=== PATIENT | female | born 1970 | race Asian ===

== ENCOUNTER 2017-02-17 17:30 | Observation (INO) ==
[2017-02-17] MEDS ORDERED: Sodium Chloride 0.9% 1,000 ML PRIMARY IV ONE (18:22)
[2017-02-17] MEDS ORDERED: NITROGLYCERIN 0.4 MG SL TAB (BOTTLE OF 3) SL ONE (18:22)
[2017-02-17] MEDS ORDERED: MORPHINE SULFATE 4 MG/1 ML IVP ONE (18:22)
[2017-02-17] MEDS ORDERED: ONDANSETRON 4 MG/2 ML VIAL IVP ONE (18:22)
--- NOTE | 2017-02-17 18:24 | EKG ---
[address] [address] Measurements Intervals D Lo Rate: 63 P: 64 UT: 174 QRS: 62 QRSD: 113 T: 62 QT: 383 QTc: 391 Interpretive Statements SINUS RHYTHM MODERATE INTRAVENTRICULAR CONDUCTION DELAY [110+ ms QRS DURATION] INTERPRETATION BASED ON A DEFAULT AGE OF 40 YEARS Compared to ECG 01/22/2015 16:53:17 Intraventricular conduction delay now present Incomplete right bundle-branch block no longer present Electronically Signed On 02-18-17 08:45:56 MST by Castro Rodriguez MD [id number]
--- NOTE | 2017-02-17 18:27 | PDOC ---
Chest Pain HPI - General Chief Complaint: Chest Pain Stated Complaint: chest pain mid chest x3 days Date Seen by Provider: 02/17/17 Time Seen by Provider: 18:23 Source: Patient Exam Limitations: POSITIVE: No limitations Treatment Prior to Arrival: REPORTS: None Nurse's Notes Reviewed & Considered: Yes - History of Present Illness Initial Comments: We 6-year-old female complaining of chest pain. Patient with chest pain described as tightness with radiation to her back and neck. She has associated shortness of breath, headache, and nausea. She denies any fever chills or sweats, no cough, no sore throat, no hematuria or dysuria, no rashes. Her symptoms have been ongoing today and intermittently yesterday. Body Location Affected: REPORTS: Head, Chest Timing: REPORTS: Intermittent, Getting Worse Duration: >24 hours Severity: Moderate Context: REPORTS: Rest, Activity Quality: REPORTS: Pressure Radiation: REPORTS: Neck (L), Back Associated Symptoms: REPORTS: Nausea, Shortness of Breath Modifying Factors: improves with: None Reported Similar Symptoms Previously: Yes Recently seen/treated/hospitalized: No Any Prior Injuries Related to Current Complaint?: No - Patient Home Medications Home Medications: Home Medications Aspirin 81 mg ORAL QD tab 10/07/10 Calcium Carbonate/Vitamin D3 [Calcium 600 + Vit D 200 Tablet] 2 tab PO QD tab 01/22/15 Fish Oil/Dha/Epa [Fish Oil 1,200 Mg Fish Oil] 2 ea PO QD cap 01/22/15 Multivitamin [Multi-Vitamin Daily] 1 ea PO QD tab 01/22/15 Atorvastatin Calcium [Lipitor] 1 tab PO QHS #90 tab 02/17/16 Albuterol Sulfate [Proair Hfa] 1 - 2 puff INH Q4-6H #1 inhaler 04/20/16 - Patient Allergies Allergies/Adverse Reactions: Allergies 3 Allergy/AdvReac Type Severity Reaction Status Date / Time No Known Allergies Allergy Verified 02/17/17 17:54 Past Medical History - heen HEENT History: Denies History Cardiovascular History: Hyperlipidemia Respiratory History: Denies History Gastrointestinal History: Denies History Genitourinary History: Denies History Endocrine History: Denies History Musculoskeletal History: Denies History Prosthesis or Implant: No Neurological History: Denies History Blood Disorders: Denies History Psychiatric History: Denies History Female Reproductive History: Denies History Obstetrical History: Denies History Cancer History: Denies History In Past Year Been Physically Harmed or Verbally Threatened: No History of MDRO: No Tobacco Use: Never Smoker Alcohol Use: None In the Past 12 Months, Have Used or Abuse Any Substance: None Previous Surgical History: Yes Type / Date of Surgery: TUBAL LIG, HYST, OVARIAN CYSTS X 2, BREAST LUMPECTOMY X2 D/T POST OP INFECTION, APPY Anesthesia Reactions: No Significant Family History: No pertinent family hx ROS - Limitations ROS Limitations: No Limitations Constitution: REPORTS: Denies Symptoms Cardiovascular: REPORTS: Chest Pain Neurological: REPORTS: Headache Gastrointestinal: REPORTS: Nausea Musculoskeletal: REPORTS: Back Pain Genitourinary: REPORTS: Denies Symptoms Eyes: REPORTS: Denies Symptoms ENT: REPORTS: Denies Symptoms Skin: REPORTS: Denies Skin Symptoms Lympathic: REPORTS: Denies Lympathic Symptoms Immunologic: POSITIVE: Denies Symptoms Psychiatric: POSITIVE: Denies Psych Symptoms Chest Pain PE - General Appearance General Appearance: REPORTS: Alert, Cooperative, No Acute Distress, No Evidence of Trauma - HEENT HEENT: POSITIVE: Head Inspection Nml, Eyes Inspection Nml, Ears Inspection Nml, Nose Inspection Nml, Oral/Dental Inspect. Nml, Pharynx Inspect. Nml, PERRL, EOMI - Neck Neck: REPORTS: Normal Inspection - Respiratory Respiratory: REPORTS: No Respiratory Distress, Breath Sounds Normal, Chest Non- Tender - Cardiovascular Cardiovascular: REPORTS: Regular Rate and Rhythm, Heart Sounds Normal, Strong Pulses, No Murmur, No Gallop, No Friction Rub, No JVD, Other (Nondisplaced point of maximal impact) Peripheral Pulses: Radial (L): 4+, Dorsalis-pedis (R): 3+, Dorsalis-pedis (L): 3 + - Abdomen Abdomen: Soft: (All Quadrants), Normal Bowel Sounds: (All Quadrants), Denies Tenderness: (All Quadrants), No Splenomegaly: (All Quadrants), No Hepatomegaly: (All Quadrants), No Guarding: (All Quadrants), No Rebound: (All Quadrants), No Palpable Pulse: (All Quadrants), No Palpabale Mass: (All Quadrants), No Distention: (All Quadrants), No Rigidity: (All Quadrants) - Skin Skin: REPORTS: Intact, Normal For Race, Warm, Dry, No Rash - Extremities Extremity: Non-Tender: (All Extremities), Normal ROM: (All Extremities), Normal Inspection: (All Extremities), Pelvis Stable: (All Extremities) - Neurological / Psychological Neurological: POSITIVE: Affect Apporpriate, Oriented X3, Motor Normal, Sensation Normal Chest Pain Progress - Results Reviewed by me Xrays/CTs/US Reviewed by me: Yes Discussed with Radiologist: Yes Lab Results Reviewed by Me: Yes CBC and BMP: 02/17/17 18:26 02/17/17 18:26 EKG Interpreted/Reviewed By Me:: Yes EKG Interpretation:: POSITIVE: Normal Sinus Rhythm - Patient's Progress Pain Medication Addressed: POSITIVE: Yes Re-Examine Time: 20:09 Status: POSITIVE: Improved MDM / ED Course: Patient was evaluated, an IV started, blood drawn and sent to the lab for studies, chest x-ray and EKG studies were also obtained. Findings: Chest x-rays a normal chest radiograph, EKG as interpreted by me, shows normal sinus rhythm. Troponin and CK-MB are normal. Triglycerides are 560, VLDL and LDL are both elevated. Compensated metabolic panel shows glucose elevated at 156. CBC is within normal limits. Assessment: Chest pain with normal enzymes, equivocal EKG, and positive risk factors. Plan: Admission for rule out [place]. Quality Measure Initiative: CP/AMI: POSITIVE: EKG, ASA Quality Measure Initiative: CAP: POSITIVE: CXR or CT - Consult Consult (If Yes, Name of Consulting MD & Time Called): Yes (Dr. Lawrence:20:10) Consulting MD will see pt:: POSITIVE: [facility] [place] Admit Counseled: POSITIVE: Patient, Family, RE: Lab Results, RE: Radiology Results, RE : DX Patient Care Time - Estimated PCT Patient Care Time (In Minutes): 45 Vital Signs - Recent Vital Signs Vital Signs: Vital Signs (Last 8 hours) Temp Pulse Pulse Pulse Resp BP Pulse Ox 02/17/17 17:36 63 02/17/17 17:30 98.6 F 68 68 16 116/79 96 - VS Reviewed Vital Signs Reviewed: Yes Discharge Clinical Impression: Chest pain Discharge Disposition: Admit to Inpatient Condition: Stable Date Decision to Admit to Inpatient: 02/17/17 Time Decision to Admit to Inpatient: 20:12
[2017-02-17 18:30] LABS: BASOPHILS # (AUTO) 0.06 10*3/UL; EOSINOPHILS # (AUTO) 0.33 10*3/UL; EOSINOPHILS % (AUTO) 5.3 % (0-8); Hematocrit [HCT] 37.9 % (37.0-47.0); Hemoglobin [HGB] 12.9 g/dL (12.0-16.0); LYMPHOCYTES # (AUTO) 3.26 10*3/uL; MEAN CORPUSCULAR HEMOGLOBIN 29.1 PG (27-31); MEAN CORPUSCULAR VOLUME 85.4 FL (81-99); MEAN PLATELET VOLUME 9.2 FL (7.4-12.2); MONOCYTES # (AUTO) 0.34 10*3/UL (0.3-0.8); MONOCYTES % (AUTO) 5.5 % (5-15); NEUTROPHILS # (AUTO) 2.19 10*3/UL; NEUTROPHILS % (AUTO) 35.3 % (50-80); RED BLOOD COUNT 4.44 10^6/uL (4.20-5.40)
[2017-02-17 18:32] LABS: PLATELET MORPHOLOGY COMMENT NORMAL MORPHOLOGY (NORM); RBC MORPHOLOGY COMMENT NORMAL MORPHOLOGY (NORM); WBC MORPHOLOGY COMMENT NORMAL MORPHOLOGY (NORM)
[2017-02-17 18:42] LABS: BLOOD UREA NITROGEN 22 mg/dL (7-22); BUN/CREATININE RATIO 24.44 (6-20); CHOL/HDL RATIO 5.16 RATIO (0-4.0); MAGNESIUM 1.8 mg/dL (1.6-2.4); SERUM ALBUMIN 4.3 g/dL (3.5-4.8); SERUM CHOLESTEROL 191 mg/dL (120-200)
--- NOTE | 2017-02-17 18:49 | DI ---
AP CHEST X-RAY, 02/17/2017 6:22 PM : Clinical History: Chest pain. Previous Exam: 01/22/2015 There is no acute soft tissue or bony abnormality. Heart size is normal. Lungs are clear. Mediastinal structures are normal. There are no pulmonary nodules. Reading: Normal chest x-ray. There has been no significant interval change.
[2017-02-17] MEDS ORDERED: NITROGLYCERIN 0.4 MG SL TAB (BOTTLE OF 3) SL PRN (21:33)
[2017-02-17] MEDS ORDERED: ATORVASTATIN 40 MG TABLET PO SCH (21:33)
[2017-02-17] MEDS ORDERED: ONDANSETRON 4 MG/2 ML VIAL IVP PRN (21:33)
[2017-02-17] MEDS ORDERED: NORMAL SALINE 10 ML SYRINGE FLUSH IVP PRN (21:33)
[2017-02-17] MEDS ORDERED: CALCIUM CARBONATE 500 MG (TUMS) CHEWABLE TABLET PO PRN (21:33)
[2017-02-17] MEDS ORDERED: LIDOCAINE W/ SODIUM BICARB 0.5 ML SYR SUBD PRN (21:33)
[2017-02-17] MEDS ORDERED: ALBUTEROL SULFATE 8.5 GM HFA INHALER INH PRN (21:33)
--- NOTE | 2017-02-17 23:47 | PDOC ---
HPI - History of Present Illness Date and Time of Service: 02/17/2017, 2342 Chief Complaint: Chest pain History of Present Illness: This very pleasant 46-year-old female with known hypercholesterolemia, very strong positive family history for coronary artery disease, who presents with chest pains over the last 3 days. The patient tells me that she thinks it's related to stress. She's been having a lot of problems with her 14-year-old daughter who has been isolating herself and actually cutting herself. The patient states that she feels like she is a good mother, and that she has reasonable rules for her daughter at home, but the stress of this relationship has caused the patient to feel like she is having a heavy heart and tightness in her chest. The pains and been coming on and off over the last 3 days. She occasionally feels nauseous, but has no diaphoresis with these pains. She does not feel short of breath with these pains. She does not smoke and does not have diabetes or hypertension. She does have known hypercholesterolemia and has been intermittently on a statin over the last 10 years, but because of abdominal pain in relation to this. She has also been on an aspirin for 10 years, denied any GI symptoms of blood loss, but does complain of abdominal upset on medications. There was no exertional component to the pain. Nitroglycerin in the emergency room seemed to have helped with the pain to some degree. She is really hopeful that she can get some counseling in place for her daughter. The patient admitted to having a lot of grief from prior family members passed on including her brother from early cardiac disease and a nephew from lymphoma and her father from cardiac disease early in life. Past Medical History Medical History: 1. Hypercholesterolemia. 2. Family history of coronary artery disease Surgical History: 1. History of unilateral oophorectomy (~1991). 2. Status post appendectomy. 3. Status post hysterectomy (~2007). 4. Status post primary low transverse section (~2012) Pertinent Family History: Significant for coronary artery disease in her father and her brother, both of whom passed on from heart disease prior to age 50. Past Social History: Does not smoke or drink. . Has one biologic child and 3 stepchildren although one step son committed suicide. She works in the school. Tobacco Use: Never Smoker In the Past 12 Months, Have Used or Abuse Any of the Following Substance: None Alcohol Use: None Medication / Allergies Home Medications: Home Medications Medication Instructions Recorded Confirmed Type Aspirin 81 mg ORAL QD tab 10/07/10 02/17/17 History Calcium Carbonate/Vitamin D3 2 tab PO QD tab 01/22/15 02/17/17 History [Calcium 600 + Vit D 200 Tablet] Fish Oil/Dha/Epa [Fish Oil 1,200 2 ea PO QD cap 01/22/15 02/17/17 History Mg Fish Oil] Multivitamin [Multi-Vitamin Daily] 1 ea PO QD tab 01/22/15 02/17/17 History Atorvastatin Calcium [Lipitor] 1 tab PO QHS #90 tab 02/17/16 02/17/17 Rx Albuterol Sulfate [Proair Hfa] 1 - 2 puff INH Q4-6H #1 inhaler 04/20/16 Rx Allergies/Adverse Reactions: Allergies 3 Allergy/AdvReac Type Severity Reaction Status Date / Time No Known Allergies Allergy Verified 02/17/17 17:54 Review of Systems - Review of Systems All Systems: Reviewed & No Additional Complaints Except as Stated (I did a 12 point review systems and it was negative other than that discussed in history present illness. In that noted below.) - Gastrointestinal Gastrointestinal / Abdominal: REPORTS: Other (Stomach upset with medications.) Exam - Vitals Vital Signs: Vital Signs Temperature 97 F Temperature Source Temporal Artery Scan Pulse Rate [Pulse Oximeter] 62 Pulse Rate 57 Respiratory Rate 20 Blood Pressure [Left Arm] 124/83 Blood Pressure 123/76 Pulse Ox 98 Oxygen Delivery Method Room Air Height 5 ft 1 in Weight 138 lb 3.2 oz - General General Appearance: No Acute Distress, Cooperative - Head Head Exam: Normal Inspection, Normocephalic, Atraumatic - Eye Eye Exam: POSITIVE: No Scleral Icterus - ENT ENT Exam: POSITIVE: Mucous Membranes Moist - Neck Neck Exam: Normal Inspection, No Tenderness, No Lymphadenopathy, No Thyromegaly - Respiratory Respiratory Exam: POSITIVE: Clear to Auscultation - Bilaterally, Breathing Non Labored, Normal to Percussion and Palpation - Cardiovascular Cardiovascular Exam: POSITIVE: RRR, No Murmur, No Clicks, No Gallops, No Rubs, No JVD - GI/Abdominal GI/Abdominal Exam: POSITIVE: Normal Bowel Sounds, Non Tender, Non Distended, Soft - Rectal Rectal Exam: POSITIVE: Deferred - External Exam: POSITIVE: Deferred Exam: POSITIVE: Deferred - Extremities Extremities Exam: POSITIVE: No Clubbing Present, No Edema Present, No Cyanosis Present - Back Back Exam: POSITIVE: Normal Inspection, No CVA Tenderness - Neurological Neurological Exam: POSITIVE: Alert, Oriented x 3, No Facial Droop, Speech Intact / Clear, Moves All Extremities Equally - Psychiatric Psychiatric Exam: POSITIVE: Normal Affect, Normal Mood Results - Labs CBC and BMP: 02/17/17 18:26 02/17/17 18:26 Additional Lab Results: Laboratory Results 02/17/17 02/17/17 02/17/17 Range/Units 18:26 18:26 18:26 WBC 6.19 (4.8-10.8) 10^3/uL RBC 4.44 (4.20-5.40) 10^6/uL Hgb 12.9 (12.0-16.0) g/dL Hct 37.9 (37.0-47.0) % MCV 85.4 (81-99) FL MCH 29.1 (27-31) PG MCHC 34.0 (33-37) g/dL RDW Std Deviation 36.8 L (39-50) fL RDW Coeff of Kalpesh 12.2 (11.5-14.5) % Plt Count 251 (140-350) 10*3/uL MPV 9.2 (7.4-12.2) FL Immature Gran % (Auto) 0.2 (0-5) % Neut % (Auto) 35.3 L (50-80) % Lymph % (Auto) 52.7 H (10-50) % [place] % (Auto) 5.5 (5-15) % Eos % (Auto) 5.3 (0-8) % Baso % (Auto) 1.0 (0-1) % Immature Gran # (Auto) 0.01 10*3/UL Neut # (Auto) 2.19 10*3/UL Lymph # (Auto) 3.26 10*3/uL [place] # (Auto) 0.34 (0.3-0.8) 10*3/UL Eos # (Auto) 0.33 10*3/UL Baso # (Auto) 0.06 10*3/UL WBC Morphology Comment Normal morphology (NORM) Plt Morphology Comment Normal morphology (NORM) RBC Morph Comment Normal morphology (NORM) D-Dimer 0.24 (0.00-0.59) mg/L Sodium 142 (135-145) meq/L Potassium 3.5 L (3.8-5.2) meq/L Chloride 106 (98-112) meq/L Carbon Dioxide 24 (23-33) meq/L Anion Gap 12 (5-20) BUN 22 (7-22) mg/dL Creatinine 0.9 (0.50-1.20) mg/dL Estimated GFR > 60 (>60 ml/min/1.73m(2)) BUN/Creatinine Ratio 24.44 H (6-20) Glucose 154 H (78-110) mg/dL Calculated Osmolality 299.0 H (267-292) mOsm/kg Calcium 9.1 (8.7-10.7) mg/dL Magnesium 1.8 (1.6-2.4) mg/dL Total Bilirubin 0.4 (0.3-1.2) mg/dL AST 30 (8-39) IU/L ALT 35 (9-52) IU/L Alkaline Phosphatase 92 (38-126) IU/L CK-MB (CK-2) (0.00-5.00) NG/ML Troponin I (< 0.040) ng/mL C-Reactive Protein < 0.5 (0.0-0.9) mg/dL Total Protein 7.4 (6.1-8.0) g/dL Albumin 4.3 (3.5-4.8) g/dL Globulin 3.1 (2.50-4.10) g/dL Albumin/Globulin Ratio 1.30 (1.3-2.0) mg/g Triglycerides 521 H (44-200) mg/dL Cholesterol 191 (120-200) mg/dL LDL Cholesterol, Calc 49.800 mg/dL VLDL Cholesterol 104 H (0-40) mg/dL HDL Cholesterol 37 L (40-150) mg/dL Cholesterol/HDL Ratio 5.16 H (0-4.0) RATIO TSH (0.2700-4.2000) uIU/mL 02/17/17 02/17/17 02/17/17 Range/Units 18:26 18:26 23:03 WBC (4.8-10.8) 10^3/uL RBC (4.20-5.40) 10^6/uL Hgb (12.0-16.0) g/dL Hct (37.0-47.0) % MCV (81-99) FL MCH (27-31) PG MCHC (33-37) g/dL RDW Std Deviation (39-50) fL RDW Coeff of Kalpesh (11.5-14.5) % Plt Count (140-350) 10*3/uL MPV (7.4-12.2) FL Immature Gran % (Auto) (0-5) % Neut % (Auto) (50-80) % Lymph % (Auto) (10-50) % [place] % (Auto) (5-15) % Eos % (Auto) (0-8) % Baso % (Auto) (0-1) % Immature Gran # (Auto) 10*3/UL Neut # (Auto) 10*3/UL Lymph # (Auto) 10*3/uL [place] # (Auto) (0.3-0.8) 10*3/UL Eos # (Auto) 10*3/UL Baso # (Auto) 10*3/UL WBC Morphology Comment (NORM) Plt Morphology Comment (NORM) RBC Morph Comment (NORM) D-Dimer (0.00-0.59) mg/L Sodium (135-145) meq/L Potassium (3.8-5.2) meq/L Chloride (98-112) meq/L Carbon Dioxide (23-33) meq/L Anion Gap (5-20) BUN (7-22) mg/dL Creatinine (0.50-1.20) mg/dL Estimated GFR (>60 ml/min/1.73m(2)) BUN/Creatinine Ratio (6-20) Glucose (78-110) mg/dL Calculated Osmolality (267-292) mOsm/kg Calcium (8.7-10.7) mg/dL Magnesium (1.6-2.4) mg/dL Total Bilirubin (0.3-1.2) mg/dL AST (8-39) IU/L ALT (9-52) IU/L Alkaline Phosphatase (38-126) IU/L CK-MB (CK-2) 1.06 (0.00-5.00) NG/ML Troponin I 0.010 < 0.012 (< 0.040) ng/mL C-Reactive Protein (0.0-0.9) mg/dL Total Protein (6.1-8.0) g/dL Albumin (3.5-4.8) g/dL Globulin (2.50-4.10) g/dL Albumin/Globulin Ratio (1.3-2.0) mg/g Triglycerides (44-200) mg/dL Cholesterol (120-200) mg/dL LDL Cholesterol, Calc mg/dL VLDL Cholesterol (0-40) mg/dL HDL Cholesterol (40-150) mg/dL Cholesterol/HDL Ratio (0-4.0) RATIO TSH 1.52 (0.2700-4.2000) uIU/mL - EKG Data -: EKG Interpreted by Me Rate: Normal EKG Shows Normal: Sinus Rhythm - Imaging Status: Image Reviewed by Me (Chest x-ray, on my view, is negative) Assessment and Plan - Patient Problems (1) Chest pain Current Visit: Yes Status: Acute Code(s): R07.9 - Chest pain, unspecified (2) Hypertriglyceridemia Current Visit: Yes Status: Acute Code(s): E78.1 - Pure hyperglyceridemia (3) Family history of coronary artery disease Current Visit: Yes Status: Acute Code(s): Z82.49 - Family history of ischemic heart disease and other diseases of the circulatory system - Assessment / Plan Additional Assessment/Plan Details: Plan: 1. Do serial enzymes and EKG if necessary 2. Aspirin, but hold off on beta rosy and Lovenox 3. We'll have the patient do a stress test chemical treadmill stress test 4. Tums when necessary 5. Nitroglycerin when necessary for chest pain 6. I think ultimately, it would help if we get this patient into some counseling along with her daughter. I've given her a name of a counselor as well as the phone number and we will touch bases with the counselor tomorrow to arrange something 7. Oxygen if necessary 8. If testing indicates further need for evaluation, discussion with cardiology. If testing is negative for myocardial infarction and no further indication for coronary artery disease, consider outpatient workup for GI source , pulmonary source, or other 9. Really think the patient would benefit from stopping her statin therapy at this time and going on Lopid given hypertriglyceridemia. The ligament may be beneficial to hold off on aspirin therapy to see if this helps stomach pains and this may need to be evaluated further. 10. I discussed the above plan with the patient and she agreed.
[2017-02-18] MEDS ORDERED: POTASSIUM CHLORIDE 20 MEQ TAB PO ONE (00:03)
[2017-02-18 07:14] LABS: HEMOGLOBIN A1C 5.72 % (4.2-6.0)
[2017-02-18] MEDS: ASPIRIN 81 MG (BABY) CHEWABLE TABLET PO SCH (11:19)
[2017-02-18] MEDS: Multivitamin Tab 1 TAB PO SCH (11:19)
[2017-02-18] MEDS: Calcium/Vit D 600mg/400u Tab 1 TAB TABLET PO SCH (11:19)
[2017-02-18] MEDS ORDERED: GEMFIBROZIL 600 MG TABLET PO ONE (11:27)
--- NOTE | 2017-02-18 11:35 | STRESSTEST ---
[facility] [place] Interpretive Statements This is a 46 YO female that presented with chest pain. Ruled out for [place]. has strong family history and hypertriglyceridemia, no DMII, no HTN, does not smoke. EKG at rest is NSR. Exercised in Juan protocol to 11 minutes. Double product of 23,976, METs of 11.5. Some non diagnostic tracings throughtout. In rest, excellent recovery with no ST depressions. Plan: stress images today, rest images tomorrow, review radiology reports. Electronically Signed On 02-21-17 08:38:51 MST by Castro Rodriguez MD [email or web address]
[2017-02-18] MEDS: GEMFIBROZIL 600 MG TABLET PO SCH (17:09)
--- NOTE | 2017-02-18 18:51 | PDOC(PROG) ---
Date and Time of Service: 02/18/2017, 1846 Interval History: No further chest pain. no shortness of breath, no nausea or vomiting. stress test portion of Juan protocol stress chemical stress test done earlier today. Objective : Data - Labs CBC and BMP: 02/17/17 18:26 02/17/17 18:26 Additional Lab Results: Laboratory Results 02/17/17 02/17/17 02/17/17 Range/Units 18:26 18:26 18:26 WBC 6.19 (4.8-10.8) 10^3/uL RBC 4.44 (4.20-5.40) 10^6/uL Hgb 12.9 (12.0-16.0) g/dL Hct 37.9 (37.0-47.0) % MCV 85.4 (81-99) FL MCH 29.1 (27-31) PG MCHC 34.0 (33-37) g/dL RDW Std Deviation 36.8 L (39-50) fL RDW Coeff of Kalpesh 12.2 (11.5-14.5) % Plt Count 251 (140-350) 10*3/uL MPV 9.2 (7.4-12.2) FL Immature Gran % (Auto) 0.2 (0-5) % Neut % (Auto) 35.3 L (50-80) % Lymph % (Auto) 52.7 H (10-50) % Castro % (Auto) 5.5 (5-15) % Eos % (Auto) 5.3 (0-8) % Baso % (Auto) 1.0 (0-1) % Immature Gran # (Auto) 0.01 10*3/UL Neut # (Auto) 2.19 10*3/UL Lymph # (Auto) 3.26 10*3/uL Castro # (Auto) 0.34 (0.3-0.8) 10*3/UL Eos # (Auto) 0.33 10*3/UL Baso # (Auto) 0.06 10*3/UL WBC Morphology Comment Normal morphology (NORM) Plt Morphology Comment Normal morphology (NORM) RBC Morph Comment Normal morphology (NORM) D-Dimer 0.24 (0.00-0.59) mg/L Sodium 142 (135-145) meq/L Potassium 3.5 L (3.8-5.2) meq/L Chloride 106 (98-112) meq/L Carbon Dioxide 24 (23-33) meq/L Anion Gap 12 (5-20) BUN 22 (7-22) mg/dL Creatinine 0.9 (0.50-1.20) mg/dL Estimated GFR > 60 (>60 ml/min/1.73m(2)) BUN/Creatinine Ratio 24.44 H (6-20) Glucose 154 H (78-110) mg/dL Mean Blood Glucose mg/dL Hemoglobin A1c (4.2-6.0) % Calculated Osmolality 299.0 H (267-292) mOsm/kg Calcium 9.1 (8.7-10.7) mg/dL Magnesium 1.8 (1.6-2.4) mg/dL Total Bilirubin 0.4 (0.3-1.2) mg/dL AST 30 (8-39) IU/L ALT 35 (9-52) IU/L Alkaline Phosphatase 92 (38-126) IU/L CK-MB (CK-2) (0.00-5.00) NG/ML Troponin I (< 0.040) ng/mL C-Reactive Protein < 0.5 (0.0-0.9) mg/dL Total Protein 7.4 (6.1-8.0) g/dL Albumin 4.3 (3.5-4.8) g/dL Globulin 3.1 (2.50-4.10) g/dL Albumin/Globulin Ratio 1.30 (1.3-2.0) mg/g Triglycerides 521 H (44-200) mg/dL Cholesterol 191 (120-200) mg/dL LDL Cholesterol, Calc 49.800 mg/dL VLDL Cholesterol 104 H (0-40) mg/dL HDL Cholesterol 37 L (40-150) mg/dL Cholesterol/HDL Ratio 5.16 H (0-4.0) RATIO TSH (0.2700-4.2000) uIU/mL Free T4 (0.93-1.71) ng/dL 02/17/17 02/17/17 02/17/17 Range/Units 18:26 18:26 23:03 WBC (4.8-10.8) 10^3/uL RBC (4.20-5.40) 10^6/uL Hgb (12.0-16.0) g/dL Hct (37.0-47.0) % MCV (81-99) FL MCH (27-31) PG MCHC (33-37) g/dL RDW Std Deviation (39-50) fL RDW Coeff of Kalpesh (11.5-14.5) % Plt Count (140-350) 10*3/uL MPV (7.4-12.2) FL Immature Gran % (Auto) (0-5) % Neut % (Auto) (50-80) % Lymph % (Auto) (10-50) % Castro % (Auto) (5-15) % Eos % (Auto) (0-8) % Baso % (Auto) (0-1) % Immature Gran # (Auto) 10*3/UL Neut # (Auto) 10*3/UL Lymph # (Auto) 10*3/uL Castro # (Auto) (0.3-0.8) 10*3/UL Eos # (Auto) 10*3/UL Baso # (Auto) 10*3/UL WBC Morphology Comment (NORM) Plt Morphology Comment (NORM) RBC Morph Comment (NORM) D-Dimer (0.00-0.59) mg/L Sodium (135-145) meq/L Potassium (3.8-5.2) meq/L Chloride (98-112) meq/L Carbon Dioxide (23-33) meq/L Anion Gap (5-20) BUN (7-22) mg/dL Creatinine (0.50-1.20) mg/dL Estimated GFR (>60 ml/min/1.73m(2)) BUN/Creatinine Ratio (6-20) Glucose (78-110) mg/dL Mean Blood Glucose mg/dL Hemoglobin A1c (4.2-6.0) % Calculated Osmolality (267-292) mOsm/kg Calcium (8.7-10.7) mg/dL Magnesium (1.6-2.4) mg/dL Total Bilirubin (0.3-1.2) mg/dL AST (8-39) IU/L ALT (9-52) IU/L Alkaline Phosphatase (38-126) IU/L CK-MB (CK-2) 1.06 (0.00-5.00) NG/ML Troponin I 0.010 < 0.012 (< 0.040) ng/mL C-Reactive Protein (0.0-0.9) mg/dL Total Protein (6.1-8.0) g/dL Albumin (3.5-4.8) g/dL Globulin (2.50-4.10) g/dL Albumin/Globulin Ratio (1.3-2.0) mg/g Triglycerides (44-200) mg/dL Cholesterol (120-200) mg/dL LDL Cholesterol, Calc mg/dL VLDL Cholesterol (0-40) mg/dL HDL Cholesterol (40-150) mg/dL Cholesterol/HDL Ratio (0-4.0) RATIO TSH 1.52 (0.2700-4.2000) uIU/mL Free T4 (0.93-1.71) ng/dL 02/18/17 02/18/17 02/18/17 Range/Units 05:06 05:06 05:06 WBC (4.8-10.8) 10^3/uL RBC (4.20-5.40) 10^6/uL Hgb (12.0-16.0) g/dL Hct (37.0-47.0) % MCV (81-99) FL MCH (27-31) PG MCHC (33-37) g/dL RDW Std Deviation (39-50) fL RDW Coeff of Kalpesh (11.5-14.5) % Plt Count (140-350) 10*3/uL MPV (7.4-12.2) FL Immature Gran % (Auto) (0-5) % Neut % (Auto) (50-80) % Lymph % (Auto) (10-50) % Castro % (Auto) (5-15) % Eos % (Auto) (0-8) % Baso % (Auto) (0-1) % Immature Gran # (Auto) 10*3/UL Neut # (Auto) 10*3/UL Lymph # (Auto) 10*3/uL Castro # (Auto) (0.3-0.8) 10*3/UL Eos # (Auto) 10*3/UL Baso # (Auto) 10*3/UL WBC Morphology Comment (NORM) Plt Morphology Comment (NORM) RBC Morph Comment (NORM) D-Dimer (0.00-0.59) mg/L Sodium (135-145) meq/L Potassium (3.8-5.2) meq/L Chloride (98-112) meq/L Carbon Dioxide (23-33) meq/L Anion Gap (5-20) BUN (7-22) mg/dL Creatinine (0.50-1.20) mg/dL Estimated GFR (>60 ml/min/1.73m(2)) BUN/Creatinine Ratio (6-20) Glucose (78-110) mg/dL Mean Blood Glucose 104.476 mg/dL Hemoglobin A1c 5.72 (4.2-6.0) % Calculated Osmolality (267-292) mOsm/kg Calcium (8.7-10.7) mg/dL Magnesium (1.6-2.4) mg/dL Total Bilirubin (0.3-1.2) mg/dL AST (8-39) IU/L ALT (9-52) IU/L Alkaline Phosphatase (38-126) IU/L CK-MB (CK-2) (0.00-5.00) NG/ML Troponin I < 0.012 (< 0.040) ng/mL C-Reactive Protein (0.0-0.9) mg/dL Total Protein (6.1-8.0) g/dL Albumin (3.5-4.8) g/dL Globulin (2.50-4.10) g/dL Albumin/Globulin Ratio (1.3-2.0) mg/g Triglycerides (44-200) mg/dL Cholesterol (120-200) mg/dL LDL Cholesterol, Calc mg/dL VLDL Cholesterol (0-40) mg/dL HDL Cholesterol (40-150) mg/dL Cholesterol/HDL Ratio (0-4.0) RATIO TSH 1.77 (0.2700-4.2000) uIU/mL Free T4 1.05 (0.93-1.71) ng/dL Objective : Exam - General General Appearance: No Acute Distress, Cooperative Additional General Exam Details: Vital Signs (24 hrs) Temp Pulse Pulse Pulse Resp BP BP 02/18/17 16:03 98.4 F 59 L 16 91/53 02/18/17 15:35 58 L 02/18/17 12:50 98.7 F 79 16 112/80 02/18/17 12:07 81 02/18/17 07:59 97.5 F 58 L 16 107/72 02/18/17 07:00 54 L 57 L 68 02/18/17 05:00 97.3 F 57 L 16 99/61 02/18/17 03:00 57 L 02/18/17 00:37 97.2 F 67 16 114/65 02/17/17 23:00 59 L 02/17/17 22:36 97 F 62 20 124/83 02/17/17 22:00 57 L 16 123/76 Pulse Ox 02/18/17 16:03 97 02/18/17 15:35 02/18/17 12:50 94 02/18/17 12:07 02/18/17 07:59 96 02/18/17 07:00 02/18/17 05:00 97 02/18/17 03:00 02/18/17 00:37 99 02/17/17 23:00 02/17/17 22:36 98 02/17/17 22:00 99 - Eye Eye Exam: No Scleral Icterus - Respiratory Respiratory Exam: Clear to Auscultation - Bilaterally, Breathing Non Labored - Cardiovascular Cardiovascular Exam: RRR, No Murmur, No Clicks, No Gallops, No Rubs, No JVD - GI/Abdominal GI/Abdominal Exam: Normal Bowel Sounds, Non Tender, Non Distended, Soft - Extremities Extremities Exam: No Clubbing Present, No Edema Present, No Cyanosis Present - Neurological Neurological Exam: Alert, Oriented x 3, No Facial Droop, Speech Intact / Clear, Moves All Extremities Equally - Psychiatric Psychiatric Exam: Normal Affect, Normal Mood Assessment and Plan - Patient Problems (1) Chest pain Current Visit: Yes Status: Acute Code(s): R07.9 - Chest pain, unspecified (2) Hypertriglyceridemia Current Visit: Yes Status: Acute Code(s): E78.1 - Pure hyperglyceridemia (3) Family history of coronary artery disease Current Visit: Yes Status: Acute Code(s): Z82.49 - Family history of ischemic heart disease and other diseases of the circulatory system - Assessment / Plan Additional Assessment/Plan Details: stop statin start lopid complete stress test in AM and await radiology review discussed with case managementwe are trying to arrange some outpatient counseling for the patient and her daughter to help with stressful issues at home. continue aspirin and telemetry monitoring. encouraged by the fact that HBA1c was normal, no diabetes
[2017-02-19] MEDS: GEMFIBROZIL 600 MG TABLET PO SCH (07:42)
[2017-02-19] MEDS: ASPIRIN 81 MG (BABY) CHEWABLE TABLET PO SCH (09:46)
[2017-02-19] MEDS: Multivitamin Tab 1 TAB PO SCH (09:46)
[2017-02-19] MEDS: Calcium/Vit D 600mg/400u Tab 1 TAB TABLET PO SCH (09:46)
[2017-02-19 12:44] VITALS: TEMP 97.2
--- NOTE | 2017-02-19 13:28 | DI ---
Exam: NM OTHER HISTORY: 46-year-old female that presented with chest pain. Rule out for MO. Strong family history and hypertriglyceridemia, no diabetes, no hypertension, does not smoke. TECHNIQUE: 2 day protocol nuclear medicine stress test using Juan protocol was performed. Stress study was performed utilizing 33.5 mCi of sestamibi technetium 99m with physical treadmill stress Juan protocol performed. 3 plane imaging of the heart was performed. 24 hours later stress portion of the study was performed utilizing 35.5 mCi of sestamibi technetium 99m with 3 plane imaging of the heart obtained. Limited CT of the chest at the level of the heart was obtained also with 5 mm transaxial images CTDI 0.08, DLP 115.33.. COMPARISON EXAM: Chest radiograph 02/17/17 FINDINGS: In the inferior lateral left ventricle at the mid one third segment there is a moderate decreased perfusion which is showing partial reversibility. There is concern for a short segment moderate decreased perfusion at the proximal septal wall region which is showing partial reversibility as seen on axial images. No other suspected reversible defect. Ejection fraction is calculated at 67% on the stress images and 58% on the rest images. Wall motion appears to be within normal limits. No evidence for stress dilatation of the left ventricle. CONCLUSION: 1. In the inferior lateral left ventricle at the mid one third segment there is a moderate decreased perfusion appearance which is showing reversibility. There is also concern for a short segment moderate decreased perfusion at the proximal septal wall region which is showing partial reversibility as seen on axial images. 2. Ejection fraction is within normal limits cochlear at 58% on the rest and 67% on the stress images. Wall motion is normal. Critical Value Communications Verify Receipt with Nurse
[2017-02-19] MEDS ORDERED: HEPARIN 5000 UNIT/1 ML IV ONE (13:37)
[2017-02-19] MEDS ORDERED: Heparin Drip 25,000 UNIT/500 ML BAG IV ONE (13:42)
[2017-02-19] MEDS ORDERED: Heparin Drip 25,000 UNIT/500 ML BAG IV SCH (13:45)
[2017-02-19] MEDS ORDERED: Metoprolol TARTRATE Tab 25 MG TAB PO ONE (14:49)
--- NOTE | 2017-02-19 14:57 | DCSUMMARY ---
Hospitalization Summary Admit Date: 02/17/17 Discharge Date: 02/19/17 Primary Diagnosis:: unstable angina Secondary Diagnosis:: Positive stress test. Atypical chest pain. Hypertriglyceridemia. Hospital Course: This very pleasant 46-year-old female that presented with atypical chest pains, and ruled out for myocardial infarction. She was found to have hypertriglyceridemia. We did do a stress test, it was a Juan protocol stress test, with a double product over 23,000, metabolic equivalents of over 11, but a positive nuclear portion of her stress test. She had no abnormal wall motion of her heart, but there is some suggestion of reversible defect. She is placed on Lopid and we stopped her Lipitor therapy during the hospital stay. She continued on aspirin. I spoke with Dr. Grande regarding the stress test results, and it was felt that the patient could do this either on an inpatient basis on outpatient basis, but the patient does want to see him today if possible to discuss further cardiac testing. She'll go by private vehicle to [facility] today. I gave her dose of Lovenox 1 mg/kg subcutaneous 1, 1 dose of metoprolol. She may need to continue that. I cannot rule out that this is a severe reaction to stress at home, but given the findings of the stress results they're difficult to ignore without further input from special shopper. She is complaining of occasional "twinges" of chest pain today. We have arranged follow-up with her primary care physician, Dr. Reyes, next week. Additionally, I found that the patient has had significant family history some heart disease including a brother and her father that prior the age of 50 with heart disease, in addition the patient is under quite an amount of stress with her daughter. She probably will require counseling to help with stressful situations at home. No shortness breath currently and no nausea or vomiting currently. Currently no chest pains although she has stated she's had some twinges occasionally. It is not clear if she is giving us all of the history from stress or fear of her situation. Assessment and Plan: 1. As per discharge assessments noted 2. Disposition: Patient is discharged by private car to [facility]. 3. Condition on discharge, stable and improved. If this is a true positive stress test, there is a risk of cardiac event, but the benefits of private transport would include reduce stress and reduced cost. 4. Diet: regular diet 5. Activities: As per [facility]. 6. Follow-Up: 1. Dr. Reyes, already scheduled. 2. 7. Medications at the Time of Discharge: Home Medications Medication Instructions Recorded Confirmed Type Aspirin 81 mg ORAL QD tab 10/07/10 02/17/17 History Calcium Carbonate/Vitamin D3 2 tab PO QD tab 01/22/15 02/17/17 History [Calcium 600 + Vit D 200 Tablet] Multivitamin [Multi-Vitamin Daily] 1 ea PO QD tab 01/22/15 02/17/17 History Albuterol Sulfate [Proair Hfa] 1 - 2 puff INH Q4-6H #1 inhaler 04/20/16 Rx Gemfibrozil [Lopid] 600 mg PO AC BK DIN #60 tab 02/19/17 Rx Nitroglycerin SL 0.4mg Tab 1 tab SL Q5M PRN bottle 02/19/17 Rx [Nitrostat SL 0.4mg Tab] 8. Time, care, counseling and coordination of care for this discharge is greater than 30 minutes. Exam - Vitals Vital Signs: Vital Signs Temperature 97.2 F Temperature Source Temporal Artery Scan Pulse Rate [Pulse Oximeter] 62 Pulse Rate [Telemetry] 71 Pulse Rate [Apical] 60 Pulse Rate 53 Respiratory Rate 16 Blood Pressure [Left Arm] 105/76 Blood Pressure 123/76 Pulse Ox 98 Oxygen Delivery Method Room Air Height 5 ft 1 in Weight 138 lb 9.6 oz - General General Appearance: No Acute Distress, Cooperative Additional General Exam Details: Tearful frequently on exam. - Eye Eye Exam: POSITIVE: No Scleral Icterus - ENT ENT Exam: POSITIVE: Mucous Membranes Moist - Respiratory Respiratory Exam: POSITIVE: Clear to Auscultation - Bilaterally, Breathing Non Labored - Cardiovascular Cardiovascular Exam: POSITIVE: RRR, No Murmur, No Clicks, No Gallops, No Rubs, No JVD - GI/Abdominal GI/Abdominal Exam: POSITIVE: Normal Bowel Sounds, Non Tender, Non Distended, Soft - Extremities Extremities Exam: POSITIVE: No Clubbing Present, No Edema Present, No Cyanosis Present - Neurological Neurological Exam: POSITIVE: Alert, Oriented x 3, No Facial Droop, Speech Intact / Clear, Moves All Extremities Equally - Psychiatric Psychiatric Exam: POSITIVE: Anxious Data Perinent Studies: Laboratory Results 02/17/17 02/17/1702/17/17 Range/Units 18:26 18:26 18:26 WBC 6.19 (4.8-10.8) 10^3/uL RBC 4.44 (4.20-5.40) 10^6/uL Hgb 12.9 (12.0-16.0) g/dL Hct 37.9 (37.0-47.0) % MCV 85.4 (81-99) FL MCH 29.1 (27-31) PG MCHC 34.0 (33-37) g/dL RDW Std Deviation 36.8 L (39-50) fL RDW Coeff of Kalpesh 12.2 (11.5-14.5) % Plt Count 251 (140-350) 10*3/uL MPV 9.2 (7.4-12.2) FL Immature Gran % (Auto) 0.2 (0-5) % Neut % (Auto) 35.3 L (50-80) % Lymph % (Auto) 52.7 H (10-50) % [place] % (Auto) 5.5 (5-15) % Eos % (Auto) 5.3 (0-8) % Baso % (Auto) 1.0 (0-1) % Immature Gran # (Auto) 0.01 10*3/UL Neut # (Auto) 2.19 10*3/UL Lymph # (Auto) 3.26 10*3/uL [place] # (Auto) 0.34 (0.3-0.8) 10*3/UL Eos # (Auto) 0.33 10*3/UL Baso # (Auto) 0.06 10*3/UL WBC Morphology Comment Normal morphology (NORM) Plt Morphology Comment Normal morphology (NORM) RBC Morph Comment Normal morphology (NORM) PT (9.7-11.4) secs INR (0.00-5.90) N/A APTT (22.6-36.2) SECS D-Dimer 0.24 (0.00-0.59) mg/L Sodium 142 (135-145) meq/L Potassium 3.5 L (3.8-5.2) meq/L Chloride 106 (98-112) meq/L Carbon Dioxide 24 (23-33) meq/L Anion Gap 12 (5-20) BUN 22 (7-22) mg/dL Creatinine 0.9 (0.50-1.20) mg/dL Estimated GFR > 60 (>60 ml/min/1.73m(2)) BUN/Creatinine Ratio 24.44 H (6-20) Glucose 154 H (78-110) mg/dL Mean Blood Glucose mg/dL Hemoglobin A1c (4.2-6.0) % Calculated Osmolality 299.0 H (267-292) mOsm/kg Calcium 9.1 (8.7-10.7) mg/dL Magnesium 1.8 (1.6-2.4) mg/dL Total Bilirubin 0.4 (0.3-1.2) mg/dL AST 30 (8-39) IU/L ALT 35 (9-52) IU/L Alkaline Phosphatase 92 (38-126) IU/L CK-MB (CK-2) (0.00-5.00) NG/ML Troponin I (< 0.040) ng/mL C-Reactive Protein < 0.5 (0.0-0.9) mg/dL Total Protein 7.4 (6.1-8.0) g/dL Albumin 4.3 (3.5-4.8) g/dL Globulin 3.1 (2.50-4.10) g/dL Albumin/Globulin Ratio 1.30 (1.3-2.0) mg/g Triglycerides 521 H (44-200) mg/dL Cholesterol 191 (120-200) mg/dL LDL Cholesterol, Calc 49.800 mg/dL VLDL Cholesterol 104 H (0-40) mg/dL HDL Cholesterol 37 L (40-150) mg/dL Cholesterol/HDL Ratio 5.16 H (0-4.0) RATIO TSH (0.2700-4.2000) uIU/mL Free T4 (0.93-1.71) ng/dL 02/17/17 02/17/17 02/17/17 Range/Units 18:26 18:26 23:03 WBC (4.8-10.8) 10^3/uL RBC (4.20-5.40) 10^6/uL Hgb (12.0-16.0) g/dL Hct (37.0-47.0) % MCV (81-99) FL MCH (27-31) PG MCHC (33-37) g/dL RDW Std Deviation (39-50) fL RDW Coeff of Kalpesh (11.5-14.5) % Plt Count (140-350) 10*3/uL MPV (7.4-12.2) FL Immature Gran % (Auto) (0-5) % Neut % (Auto) (50-80) % Lymph % (Auto) (10-50) % [place] % (Auto) (5-15) % Eos % (Auto) (0-8) % Baso % (Auto) (0-1) % Immature Gran # (Auto) 10*3/UL Neut # (Auto) 10*3/UL Lymph # (Auto) 10*3/uL [place] # (Auto) (0.3-0.8) 10*3/UL Eos # (Auto) 10*3/UL Baso # (Auto) 10*3/UL WBC Morphology Comment (NORM) Plt Morphology Comment (NORM) RBC Morph Comment (NORM) PT (9.7-11.4) secs INR (0.00-5.90) N/A APTT (22.6-36.2) SECS D-Dimer (0.00-0.59) mg/L Sodium (135-145) meq/L Potassium (3.8-5.2) meq/L Chloride (98-112) meq/L Carbon Dioxide (23-33) meq/L Anion Gap (5-20) BUN (7-22) mg/dL Creatinine (0.50-1.20) mg/dL Estimated GFR (>60 ml/min/1.73m(2)) BUN/Creatinine Ratio (6-20) Glucose (78-110) mg/dL Mean Blood Glucose mg/dL Hemoglobin A1c (4.2-6.0) % Calculated Osmolality (267-292) mOsm/kg Calcium (8.7-10.7) mg/dL Magnesium (1.6-2.4) mg/dL Total Bilirubin (0.3-1.2) mg/dL AST (8-39) IU/L ALT (9-52) IU/L Alkaline Phosphatase (38-126) IU/L CK-MB (CK-2) 1.06 (0.00-5.00) NG/ML Troponin I 0.010 < 0.012 (< 0.040) ng/mL C-Reactive Protein (0.0-0.9) mg/dL Total Protein (6.1-8.0) g/dL Albumin (3.5-4.8) g/dL Globulin (2.50-4.10) g/dL Albumin/Globulin Ratio (1.3-2.0) mg/g Triglycerides (44-200) mg/dL Cholesterol (120-200) mg/dL LDL Cholesterol, Calc mg/dL VLDL Cholesterol (0-40) mg/dL HDL Cholesterol (40-150) mg/dL Cholesterol/HDL Ratio (0-4.0) RATIO TSH 1.52 (0.2700-4.2000) uIU/mL Free T4 (0.93-1.71) ng/dL 02/18/17 02/18/17 02/18/17 Range/Units 05:06 05:06 05:06 WBC (4.8-10.8) 10^3/uL RBC (4.20-5.40) 10^6/uL Hgb (12.0-16.0) g/dL Hct (37.0-47.0) % MCV (81-99) FL MCH (27-31) PG MCHC (33-37) g/dL RDW Std Deviation (39-50) fL RDW Coeff of Kalpesh (11.5-14.5) % Plt Count (140-350) 10*3/uL MPV (7.4-12.2) FL Immature Gran % (Auto) (0-5) % Neut % (Auto) (50-80) % Lymph % (Auto) (10-50) % [place] % (Auto) (5-15) % Eos % (Auto) (0-8) % Baso % (Auto) (0-1) % Immature Gran # (Auto) 10*3/UL Neut # (Auto) 10*3/UL Lymph # (Auto) 10*3/uL [place] # (Auto) (0.3-0.8) 10*3/UL Eos # (Auto) 10*3/UL Baso # (Auto) 10*3/UL WBC Morphology Comment (NORM) Plt Morphology Comment (NORM) RBC Morph Comment (NORM) PT (9.7-11.4) secs INR (0.00-5.90) N/A APTT (22.6-36.2) SECS D-Dimer (0.00-0.59) mg/L Sodium (135-145) meq/L Potassium (3.8-5.2) meq/L Chloride (98-112) meq/L Carbon Dioxide (23-33) meq/L Anion Gap (5-20) BUN (7-22) mg/dL Creatinine (0.50-1.20) mg/dL Estimated GFR (>60 ml/min/1.73m(2)) BUN/Creatinine Ratio (6-20) Glucose (78-110) mg/dL Mean Blood Glucose 104.476 mg/dL Hemoglobin A1c 5.72 (4.2-6.0) % Calculated Osmolality (267-292) mOsm/kg Calcium (8.7-10.7) mg/dL Magnesium (1.6-2.4) mg/dL Total Bilirubin (0.3-1.2) mg/dL AST (8-39) IU/L ALT (9-52) IU/L Alkaline Phosphatase (38-126) IU/L CK-MB (CK-2) (0.00-5.00) NG/ML Troponin I < 0.012 (< 0.040) ng/mL C-Reactive Protein (0.0-0.9) mg/dL Total Protein (6.1-8.0) g/dL Albumin (3.5-4.8) g/dL Globulin (2.50-4.10) g/dL Albumin/Globulin Ratio (1.3-2.0) mg/g Triglycerides (44-200) mg/dL Cholesterol (120-200) mg/dL LDL Cholesterol, Calc mg/dL VLDL Cholesterol (0-40) mg/dL HDL Cholesterol (40-150) mg/dL Cholesterol/HDL Ratio (0-4.0) RATIO TSH 1.77 (0.2700-4.2000) uIU/mL Free T4 1.05 (0.93-1.71) ng/dL 02/19/17 Range/Units 13:38 WBC (4.8-10.8) 10^3/uL RBC (4.20-5.40) 10^6/uL Hgb (12.0-16.0) g/dL Hct (37.0-47.0) % MCV (81-99) FL MCH (27-31) PG MCHC (33-37) g/dL RDW Std Deviation (39-50) fL RDW Coeff of Kalpesh (11.5-14.5) % Plt Count (140-350) 10*3/uL MPV (7.4-12.2) FL Immature Gran % (Auto) (0-5) % Neut % (Auto) (50-80) % Lymph % (Auto) (10-50) % [place] % (Auto) (5-15) % Eos % (Auto) (0-8) % Baso % (Auto) (0-1) % Immature Gran # (Auto) 10*3/UL Neut # (Auto) 10*3/UL Lymph # (Auto) 10*3/uL [place] # (Auto) (0.3-0.8) 10*3/UL Eos # (Auto) 10*3/UL Baso # (Auto) 10*3/UL WBC Morphology Comment (NORM) Plt Morphology Comment (NORM) RBC Morph Comment (NORM) PT 10.5 (9.7-11.4) secs INR 0.99 (0.00-5.90) N/A APTT 27.0 (22.6-36.2) SECS D-Dimer (0.00-0.59) mg/L Sodium (135-145) meq/L Potassium (3.8-5.2) meq/L Chloride (98-112) meq/L Carbon Dioxide (23-33) meq/L Anion Gap (5-20) BUN (7-22) mg/dL Creatinine (0.50-1.20) mg/dL Estimated GFR (>60 ml/min/1.73m(2)) BUN/Creatinine Ratio (6-20) Glucose (78-110) mg/dL Mean Blood Glucose mg/dL Hemoglobin A1c (4.2-6.0) % Calculated Osmolality (267-292) mOsm/kg Calcium (8.7-10.7) mg/dL Magnesium (1.6-2.4) mg/dL Total Bilirubin (0.3-1.2) mg/dL AST (8-39) IU/L ALT (9-52) IU/L Alkaline Phosphatase (38-126) IU/L CK-MB (CK-2) (0.00-5.00) NG/ML Troponin I (< 0.040) ng/mL C-Reactive Protein (0.0-0.9) mg/dL Total Protein (6.1-8.0) g/dL Albumin (3.5-4.8) g/dL Globulin (2.50-4.10) g/dL Albumin/Globulin Ratio (1.3-2.0) mg/g Triglycerides (44-200) mg/dL Cholesterol (120-200) mg/dL LDL Cholesterol, Calc mg/dL VLDL Cholesterol (0-40) mg/dL HDL Cholesterol (40-150) mg/dL Cholesterol/HDL Ratio (0-4.0) RATIO TSH (0.2700-4.2000) uIU/mL Free T4 (0.93-1.71) ng/dL [address] [facility] [place] [id number] PH: [phone]: [phone] FAX: [phone] ~DIAGNOSTIC IMAGING REPORT~ Patient: Jacques Malhotra : 1970 Sex: F Age: 46 Exam Name: XR CXR 1VW Exam Date: 02/17/17 Report # : [id number] CPT Code: 02835 EMR/MR #: [id number] Ordering: Germán Harman Admiting: Primary: Lalo Soler MD Attending: Signed AP CHEST X-RAY, 02/17/2017 6:22 PM : Clinical History: Chest pain. Previous Exam: 01/22/2015 There is no acute soft tissue or bony abnormality. Heart size is normal. Lungs are clear. Mediastinal structures are normal. There are no pulmonary nodules. Reading: Normal chest x-ray. There has been no significant interval change. Dictated By: 02/17/17 1841 MIKKI DE ANDA MD. Signed By: 02/17/17 1849 MIKKI DE ANDA MD. [address] [facility] [place] [id number] PH: DD: [phone] FAX: [phone] ~DIAGNOSTIC IMAGING REPORT~ Patient: Jacques Malhotra : 1970 Sex: F Age: 46 Exam Name: CT Myocardial Multi-Spect Exam Date: 02/18/17 Report # : [id number] CPT Code: 89070 EMR/MR #: [id number] Ordering: ZACHERY HOFFMAN Admiting: ZACHERY HOFFMAN DO Primary: Lalo Soler MD Attending: ZACHERY HOFFMAN DO Signed Exam: CT OTHER HISTORY: 46-year-old female that presented with chest pain. Rule out for ME. Strong family history and hypertriglyceridemia, no diabetes, no hypertension, does not smoke. TECHNIQUE: 2 day protocol nuclear medicine stress test using Ujan protocol was performed. Stress study was performed utilizing 33.5 mCi of sestamibi technetium 99m with physical treadmill stress Juan protocol performed. 3 plane imaging of the heart was performed. 24 hours later stress portion of the study was performed utilizing 35.5 mCi of sestamibi technetium 99m with 3 plane imaging of the heart obtained. Limited CT of the chest at the level of the heart was obtained also with 5 mm transaxial images CTDI 0.08, DLP 115.33.. COMPARISON EXAM: Chest radiograph 02/17/17 FINDINGS: In the inferior lateral left ventricle at the mid one third segment there is a moderate decreased perfusion which is showing partial reversibility. There is concern for a short segment moderate decreased perfusion at the proximal septal wall region which is showing partial reversibility as seen on axial images. No other suspected reversible defect. Ejection fraction is calculated at 67% on the stress images and 58% on the rest images. Wall motion appears to be within normal limits. No evidence for stress dilatation of the left ventricle. CONCLUSION: 1. In the inferior lateral left ventricle at the mid one third segment there is a moderate decreased perfusion appearance which is showing reversibility. There is also concern for a short segment moderate decreased perfusion at the proximal septal wall region which is showing partial reversibility as seen on axial images. 2. Ejection fraction is within normal limits cochlear at 58% on the rest and 67% on the stress images. Wall motion is normal. Critical Value Communications Verify Receipt with Nurse Dictated By: Arpan Duong MD Patient Problems - Patient Problem List (1) Unstable angina Current Visit: Yes Status: Acute Code(s): I20.0 - Unstable angina Category : Medical (2) Chest pain Current Visit: Yes Status: Acute Code(s): R07.9 - Chest pain, unspecified Category: Medical (3) Hypertriglyceridemia Current Visit: Yes Status: Acute Code(s): E78.1 - Pure hyperglyceridemia Category: Medical (4) Family history of coronary artery disease Current Visit: Yes Status: Acute Code(s): Z82.49 - Family history of ischemic heart disease and other diseases of the circulatory system Category: Medical (5) Stress Current Visit: Yes Status: Acute Code(s): F43.9 - Reaction to severe stress , unspecified Category: Medical
[2017-02-19] MEDS ORDERED: ENOXAPARIN SODIUM 60 MG/0.6 ML SYRINGE SUBCUT ONE (15:00)
[2017-02-19 15:47] VITALS: BP 123/84; RESP 18; O2SAT 91
[2017-02-19] MEDS ORDERED: Metoprolol TARTRATE Tab 25 MG TAB PO SCH (21:00)
== END 2017-02-19 15:17 | disposition short-term general hospital (02) ==
LOC: ER 17:30 → MED/SURG 17:30
PROVIDERS: ADMIT Family Medicine; ATTEND Family Medicine